=== PATIENT | male | born 1990 | race Caucasian/White ===

== ENCOUNTER 2016-09-20 15:04 | Emergency (ER) | payer OTHER, SELFPAY ==
[2016-09-20] MEDS ORDERED: AMOXicillin 250 MG CAP ONE (15:37)
== END 2016-09-20 15:51 | disposition home or self-care (01) ==
LOC: BURERS 15:04
DX: K02.9 Dental caries, unspecified (principal)
CPT/HCPCS: 99282

== ENCOUNTER 2018-08-17 17:52 | Emergency (ER) | payer SELFPAY ==
[2018-08-17] MEDS ORDERED: Ketorolac Tromethamine 30 MG/ML VIAL ONE ×2 (18:02→18:15)
[2018-08-17 18:42] LABS: #Basophils 0.1 thou/uL (0.0-0.2); #Eosinphils 0.1 thou/uL (0.0-0.7); #Lymphocytes 1.3 thou/uL (1.20-3.40); #Monocytes 0.5 thou/uL (0.11-0.59); %Eosinophils 2.2 % (0.0-10.0); %Lymphocytes 26.9 % (21.0-51.0); %Monocytes 9.2 % (0.0-10.0); %Neutrophils 60.6 % (42.0-75.0); Mean Corpuscular HGB CONC 34.4 g/dL (32.0-36.0); Mean Corpuscular Hemoglobin 28.2 pg (27.0-31.0); Mean Corpuscular Volume 81.9 fL (78.0-98.0); Mean Platelet Volume 5.8 fL (7.4-10.4); Platelet Count 259 thou/uL (130-400); RBC Distribution Width 13.8 % (11.5-14.5); Red Blood Cell (RBC) Count 4.98 mill/uL (4.70-6.10); White Blood Cell (WBC) Count 4.9 thou/uL (4.8-10.8)
[2018-08-17 18:57] LABS: ALT (SGPT) 45 U/L (8-55); AST (SGOT) 37 U/L (5-34); Albumin 4.2 g/dL (3.5-5.0); Alkaline Phosphatase 82 U/L (40-150); Anion Gap 17 mmol/L (10-20); BUN (Urea Nitrogen) 10 mg/dL (8.9-20.6); Bilirubin, Total 0.4 mg/dL (0.2-1.2); Calc. Creatinine Clearance 0 mL/min (70-130); Calcium 9.9 mg/dL (7.8-10.44); Carbon Dioxide 27 mmol/L (22-29); Chloride 102 mmol/L (98-107); Estimated GFR-MDRD 72; Globulin 3.5 g/dL (2.4-3.5); Glucose 147 mg/dL (70-105); Protein, Total 7.7 g/dL (6.0-8.3); Sodium 142 mmol/L (136-145)
--- NOTE | 2018-08-17 18:58 | CT ---
EXAM: ABDOMEN AND PELVIC CT SCAN WITHOUT IV CONTRAST 08/17/18 HISTORY: Right flank pain. COMPARISON: 11/26/17. FINDINGS: Lung bases appear clear. Liver, gallbladder, pancreas, borderline size spleen, and adrenal glands are unremarkable. There is dilatation of the right upper renal collecting system and right ureter second elle to an obstructing 0.4 cm distal right ureteral calculus. Status post appendectomy changes. No arnoldo dence for large or small bowel obstruction. IMPRESSION: Moderately obstructing distal right ureteral calculus measuring approximately 0.4 cm at the ureterove sicular junction. Status post appendectomy. Possible small umbilical fat containing hernia. No eviden ce for other significant acute process. POS: RRE
[2018-08-17 19:07] LABS: Clarity Cloudy (Clear)
[2018-08-17 19:08] LABS: Bilirubin Small (Negative); Blood, Urine Large (Negative); Glucose, Urine (Dipstick) Negative (Negative); Leukocyte Negative (Negative); Nitrite Negative (Negative); Protein, Urine (Dipstick) 100 mg/dL (Neg-Trace); Urobilinogen 0.2 mg/dL (0.2-1.0); pH, Urine 5.5 (5.0-9.0)
[2018-08-17 19:10] LABS: Specific Gravity, Urine 1.026 (1.005-1.030)
[2018-08-17 19:13] LABS: Bacteria/HPF 1+ HPF (None Seen); Other Microscopic Description MUCOUSE THREADS; RBC/HPF GREATER THAN 50-TNTC HPF (0-3); Squamous Epithelial 0-3 HPF (0-3); WBC/HPF 0-3 HPF (0-3)
== END 2018-08-17 19:22 | disposition home or self-care (01) ==
LOC: BURERS 17:52
DX: N20.2 Calculus of kidney with calculus of ureter (principal)
CPT/HCPCS: 74176; 80053; 81003; 81015; 85025; 96361; 96374; J1885

== ENCOUNTER 2018-08-18 11:57 | Emergency (ER) | payer SELFPAY ==
[2018-08-18] MEDS ORDERED: Ketorolac Tromethamine 60 MG/2 ML VIAL ONE (12:07)
== END 2018-08-18 12:20 | disposition home or self-care (01) ==
LOC: BURERS 11:57
DX: N23 Unspecified renal colic (principal); G61.0 Guillain-Barre syndrome; Z79.899 Other long term (current) drug therapy
CPT/HCPCS: 96372; J1885

== ENCOUNTER 2019-06-19 17:32 | Emergency (ER) | payer SELFPAY ==
--- NOTE | 2019-06-19 19:05 | RAD ---
Left ankle 3 views HISTORY: Left ankle injury. FINDINGS: Ankle mortise and talar dome are intact. No acute fracture or dislocation. IMPRESSION: Normal exam.
== END 2019-06-19 19:17 | disposition home or self-care (01) ==
LOC: BURERS 17:32
DX: L03.116 Cellulitis of left lower limb (principal)

== ENCOUNTER 2020-05-27 14:54 | Emergency (ER) | payer SELFPAY ==
--- NOTE | 2020-05-27 18:17 | CT ---
CT OF THE FACIAL BONES 05/27/[address] of the facial bones was done following trauma. Fractures of the anterior and lateral moncada of the left maxillary sinus are present along with an air -fluid level in the sinus itself. There is an abundant amount of soft tissue air seen lateral to this sinus and in the soft tissues on the left side of the face. In addition, there is a fracture of the lateral wall of the left orbit, as well as a small fracture t hrough the floor of the orbit. While there is an area of mucosal thickening in the roof of the left m axillary sinus just below the floor of the left orbit, I can see the inferior rectus muscle fairly we ll, and it is not obviously entrapped here. My understanding is the patient has a history of strabism us surgery. The left lateral rectus is slightly thicker than the right, but whether this is significa nt or not is unknown. No retro-orbital hematoma was seen. The zygomatic arches appear intact, as do the nasal bones. The fr ontal sinus, ethmoid sinuses, sphenoid sinus and right maxillary sinus appear intact. The mandible sh owed no fracture, nor did the pterygoid plates. IMPRESSION: 1. Fractures of the anterior and lateral moncada of the left maxillary sinus with slight depressio n. 2. Fractures of the lateral wall and floor of the left orbit. No definite muscular entrapment wa s appreciated. 3. Left lateral rectus muscle slightly thicker than the right, but this may or may not be of cur rent significance. Preliminary report discussed with Dr. Epperson at 1539 on 05/27/20. POS: HOME
--- NOTE | 2020-05-27 18:18 | RAD ---
RIGHT HAND THREE VIEWS: 05/27/20 No fracture or joint abnormality was seen. The carpal bones and wrist all appeared intact, as did the digits. IMPRESSION: No acute bony findings. POS: HOME
== END 2020-05-27 16:23 | disposition home or self-care (01) ==
LOC: BURERS 14:54
DX: S02.842A Fracture of lateral orbital wall, left side, initial encounter for closed fracture (principal); S02.32XA Fracture of orbital floor, left side, initial encounter for closed fracture; S02.40DA Maxillary fracture, left side, initial encounter for closed fracture; V86.96XA Unspecified occupant of dirt bike or motor/cross bike injured in nontraffic accident, initial encounter; Z87.891 Personal history of nicotine dependence
CPT/HCPCS: 12001; 70486

== ENCOUNTER → 2021-12-22 | Emergency (ER) | payer SELFPAY | LOC: BURERS 14:52 | DX: K02.9 Dental caries, unspecified (principal); K03.81 Cracked tooth ==

== ENCOUNTER 2022-06-17 21:22 | Emergency (ER) | payer SELFPAY ==
[2022-06-17] MEDS ORDERED: Lidocaine 1% PF 5 ML VIAL ONE (22:36)
[2022-06-17] MEDS ORDERED: Cephalexin 250 MG CAP ONE (23:29)
== END 2022-06-17 23:51 | disposition home or self-care (01) ==
LOC: BURERS 21:22
DX: S60.352A Superficial foreign body of left thumb, initial encounter (principal); S60.451A Superficial foreign body of left index finger, initial encounter; W29.4XXA Contact with nail gun, initial encounter

== ENCOUNTER 2023-01-14 19:04 | Emergency (ER) | payer SELFPAY ==
[2023-01-14] MEDS ORDERED: Cephalexin 250 MG CAP ONE (19:35)
== END 2023-01-14 19:40 | disposition home or self-care (01) ==
LOC: BURERS 19:04
DX: L03.115 Cellulitis of right lower limb (principal)
CPT/HCPCS: 99283

== ENCOUNTER 2023-04-12 09:00 | Emergency (ER) | payer SELFPAY ==
[2023-04-12] MEDS ORDERED: Bupivacaine HCl 0.5%/Epinephrine 1:200,000/PF 30 ml Vial ONE (09:17)
[2023-04-12] MEDS ORDERED: Penicillin V Potassium 250 MG TAB ONE (09:35)
== END 2023-04-12 09:40 | disposition home or self-care (01) ==
LOC: BURERS 09:00
DX: K04.7 Periapical abscess without sinus (principal)
CPT/HCPCS: 64400

== ENCOUNTER 2024-02-11 11:24 | Emergency (ER) | payer SELFPAY ==
[2024-02-11] MEDS ORDERED: Ciprofloxacin 500 MG TAB ONE (11:47)
[2024-02-11] MEDS ORDERED: Ibuprofen 800 MG TAB ONE (11:47)
[2024-02-11] MEDS ORDERED: Cephalexin 250 MG CAP ONE (11:47)
== END 2024-02-11 12:00 | disposition home or self-care (01) ==
LOC: BURERS 11:24
DX: S91.331A Puncture wound without foreign body, right foot, initial encounter (principal); L03.115 Cellulitis of right lower limb; W54.0XXA Bitten by dog, initial encounter
CPT/HCPCS: 99283